=== PATIENT | male | born 1995 | race Caucasian/White ===

== ENCOUNTER 2025-04-12 06:58 | Emergency (ER) | payer SELFPAY ==
--- OUTSIDE RECORDS SUMMARY | 2025-04-08 10:40 | XMS_ITS | Encounter Summary ---
Author Organization [facility] C enter Address [address] [place] [address] Care Team Providers Care Account Development Associate Name Role Phone Nirmala Anderson MD Primary Care Provider Reason for Visit * Reason Comments ADHD Encounter Details Date Type Department Care Team ([facility] Contact Info) Description 04/08/2025 10:40 AM EDT Telemedicine Primary Care - Family Medicine [facility] [address] [place] [phone] Nirmala Anderson MD [address] [place] [phone] Traumatic brain injury with loss of consciousness, sequela (Primary Dx); Elevated ALT measurement; Moderate episode of recurrent major depressive disorder; Generalized anxiety disorder with panic attacks; Erectile dysfunction, unspecified erectile dysfunction type Social History Tobacco Use Types Packs/Day Years Used Date Smoking Tobacco: Never Smokeless Tobacco: Former Chew Alcohol Use Standard Drinks/Week Comments Not Currently 0 (1 standard drink = 0.6 oz pur e alcohol) Depression Answer Date Recorded PHQ-9 Total Score (Interpret ation of Total Score 1-4 = Minimal depression; 5-9 = Mild depression; 10-14 = Moderate depression; 15-19 = Moderately severe depression) 0 12/18/2024 Sex and Gender Information Value Date Recorded Sex Assigned at Not on file Legal Sex Male 10:33 AM EDT Gender Identity Male 12/17/2024 4:25 PM EDT Sexual Orientation Straight 12/17/2024 4: 25 PM EDT documented as of this encounter Progress Notes * Nirmala Anderson MD - 04/08/2025 10:40 AM EDT Family Medicine Video Visit Assessment and Plan Mario is a 30 y.o. male with a PMHx of TBI, depression, anxiety, HTN ICD-10-CM 1. Traumatic brain injury with loss of consciousness, sequela S06.9X9S 2. Elevated ALT measurement R74.01 COMPREHENSIVE METABOLIC PANEL 3. Moderate episode of recurrent major depressive disorder F33.1 atomoxetine 40 MG capsule 4. Generalized anxiety disorder with panic attacks F41.1 atomoxetine 40 MG capsule F41.0 5. Erectile dysfunction, unspecified erectile dysfunction type N52.9 TESTOSTERONE CBC,PLATELETS Assessment & Plan 1. Attention Deficit Disorder (ADD) in the setting of TBI - Reports that atomoxetine 40 mg is not lasting the whole day, with effects tapering off by early afternoon. - Advised to take atomoxetine 40 mg twice daily, once in the morning and once at lunchtime, to avoid the afternoon crash. If the medication affects sleep, he should reach out for a possible dose adjustment. 2. Depression: - Mentions that his antidepressant is not as effective as it used to be, particularly in the late afternoon and evening. - Plan is to first address the ADD, as uncontrolled ADD can exacerbate anxiety and depression. Adjustments to his antidepressant will be considered at the next visit if necessary. 3. Testosterone management: - Previous testosterone levels were dangerously high, posing risks such as blood clotting and liverdamage. - Advised to undergo another testosterone test. If the results indicate low levels, a similar treatment to his previous one will be considered. If the levels are within the normal range, no changes will be made. Follow-up: The patient will follow up on 05/03/2025. Follow up: as scheduled Total call time: 7 minutes Nirmala Anderson MD This telehealth visit is a real time audio/visual communication. During the scheduling process, this patient has verbally consented to the submission of Telehealth visits and the patient is aware of the risks, benefits, and possible coinsurance/copay costs. This visit is being conducted by real time video due to the current COVID19 pandemic and efforts toreduce in-clinic visits, where possible, to reduce the overall risk of the spread of the illness. Time to complete visit: Time to complete visit: 7 Minutes Chief Complaint or Reason for Visit Chief Complaint Patient presents with ADHD History of Present Illness History of Present Illness The patient presents via virtual visit for ADD, depression, and testosterone management. He has resumed work and is managing well but wishes to discuss potential adjustments to his ADD/ADHD medication. He reports that the effects of his current medication, atomoxetine 40 mg, are similar to those of his antidepressant. It is effective in the morning and early afternoon, but he experiences a decline in its efficacy by late afternoon. He typically takes the medication around 7:00 AM, and it remains effective until 1:00 or 2:00 PM. He also notes a decrease in the effectiveness of his antidepressants, which he believes is contributing to his symptoms. He has been struggling to schedule appointments due to increased travel for his new job. He is seeking a similar treatment to what he was receiving prior to our regular consultations. He recalls thathis testosterone level was 82 when tested in 11/2024 or 12/2024, and he was only receiving a quarter mL per week at that time. He is unsure how his level increased from 82 to 948. Occupation: Works for a [employer] Review Of Systems and Relevant History Past medical, surgical, family, and social history reviewed in [facility]. Review of Systems Objective Findings This appointment was conducted as a telephone visit, therefore no vitals were taken at the appointment. The vitals below are from the last three office visits. BP Readings from Last 3 Encounters: 02/26/25 151/79 01/14/25 (!) 180/94 12/18/24 156/86 Wt Readings from Last 3 Encounters: 02/26/25 93.4 kg (205 lb 12.8 oz) 01/14/25 97.5 kg (215 lb) 12/18/24 102.5 kg (226 lb) documented in this encounter Plan of Treatment Upcoming Encounters Date Type Department Care Team (Late st Contact Info) Description 05/03/2025 9:40 AM EDT Office Visit Primary Care - Family Medicine [facility] [address] [place] [phone] Nirmala Anderson MD [address] [place] [phone] Scheduled Orders Name Type Priority Associated Diagnoses Orde r Schedule TESTOSTERONE Lab Routine Erectile dysfunction, unspecified erectile dysfunction type Expected: 04/08/2025, Expires: 04/08/2026 COMPREHENSIVE METABOLIC PANEL Lab Routine Elevated ALT measurement Expected: 04/08/2025, Expires: 04/08/2026 CBC,PLATELETS Lab Routine Erectile dysfunction, unspecified erectile dysfunction type Expected: 04/08/2025, Expires: 04/08/2026 documented as of this encounter Visit Diagnoses Diagnosis Traumatic brain injury with loss of consciousness, sequela- Primary Elevated ALT measurement Nonspecific elevation of levels of transaminase or lactic acid dehydrogenase (LDH) Moderate episode of recurrent major depressive disorder Generalized anxiety disorder with panic attacks Erectile dysfunction, unspecified erectile dysfunction type documented in this encounter Additional Health Concerns Assessment Noted Time PHQ-9 Depression Total Score: 0 12/19/19 1:49 PM EDT documented as of this encounter Care Teams Account Development Associate Relationship Specialty Start Date End Date Nirmala Anderson MD PCP - General Family Medicine 12/18/24 documented as of this encounter
[2025-04-12] VITALS (34 sets, daily range): BP systolic 135–165; BP diastolic 75–95; PULSE 119–152; TEMP 36.8; O2SAT 97–100
--- NOTE | 2025-04-12 07:01 | ECG_ITS ---
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 Measurements Intervals [place] Rate: 136 P: -14168 WV: 99 QRS: 81 QRSD: 108 T: 7 QT: 360 QTc: 440 Interpretive Statements SINUS TACHYCARDIA Nonspecific ST changes ARTIFACT IN LEAD(S) precluding accurate interpretation 9140 abnormal rhythm ECG No previous ECG available for comparison Electronically Signed On 04-12-2025 7:49:52 EDT by RHIANNA PINA M.D.
[2025-04-12 07:09] LABS: Hematocrit 42.8 % (42.0-54.0); Hemoglobin 14.9 g/dL (14.0-18.0); Immature Granulocytes Abs Auto 0.01 10^3/uL (0.00-0.03); Immature Granulocytes Pct Auto 0.2 % (0.0-0.5); Lymphocytes Absolute Auto 1.7 10^3/uL (1.2-3.8); Mean Corpuscular HGB Conc 34.8 g/dL (29.9-35.2); Mean Corpuscular Hemoglobin 29.8 pg (25.9-34.0); Mean Corpuscular Volume 85.6 fL (80.0-94.0); Platelet Count 359 10^3/uL (150-450); Red Blood Count 5.00 10^6/uL (4.70-6.10); White Blood Count 6.3 10^3/uL (4.0-11.0)
[2025-04-12] MEDS: DIAZEPAM 10 MG/2 ML SYRINGE 5 MG IV ×2 (07:09→07:48)
[2025-04-12] MEDS: 0.9 % SODIUM CHLORIDE 1,000 ML 1000 ML IV (07:11)
[2025-04-12 07:24] LABS: Alanine Aminotransferase 75 U/L (16-63); Albumin Globulin Ratio 1.0; Albumin Level 3.8 g/dL (3.4-5.0); Alkaline Phosphatase 84 U/L (46-116); Anion Gap 26.1; Aspartate Amino Transferase 27 U/L (15-37); Blood Urea Nitrogen 16.0 mg/dL (7.0-18.0); Calcium 9.1 mg/dL (8.5-10.1); Carbon Dioxide 19.5 mmol/L (21.0-32.0); Chloride 100 mmol/L (98-107); Estimated GFR (African America >60 (>=60 mL/min/1.73m^2); Estimated GFR (Non-African Ame 57 (>=60 mL/min/1.73m^2); Globulin 3.7 g/dL; Glucose 136 mg/dL (74-106); Potassium 3.6 mmol/L (3.5-5.1); Sodium 142 mmol/L (136-145); Total Protein 7.5 g/dL (6.4-8.2)
--- NOTE | 2025-04-12 07:25 | ED.GENADUL1 ---
HPI HPI - General Adult General Chief complaint: Overdose Stated complaint: OVERDOSE Time Seen by Provider: 04/12/25 07:01 Source: patient Mode of arrival: ambulance History of Present Illness HPI narrative: 30-year-old male presents to the emergency department for a cocaine overdose. Some the history is obtained from the paramedics and some of it from his mother. Apparently about 3 to 4 weeks ago he lost his job and then his girlfriend broke up with him about 2 weeks ago and asked him to leave their home. He did move in with his mother about 2 weeks ago and that is where today's events happened. He reportedly had snorted and orally ingested an 8 ball of cocaine. He did this because he was upset about losing his girlfriend and not being able to see his child. His mother reports that he has a history of depression but has never harmed himself previously. He admits to drinking alcohol last night and denies any other drug use. Related Data Home Medications ?Medication ?Instructions ?Recorded ?Confirmed atomoxetine 40 mg capsule 40 mg PO DAILY 04/12/25 04/12/25 bupropion HCl 300 mg 24 hr tablet, 300 mg PO DAILY 04/12/25 04/12/25 extended release fluoxetine 20 mg capsule 60 mg PO DAILY 04/12/25 04/12/25 hydrochlorothiazide 25 mg tablet 25 mg PO DAILY 04/12/25 04/12/25 hydroxyzine HCl 10 mg tablet 10 mg PO Q8H PRN anxiety 04/12/25 04/12/25 olmesartan 20 mg tablet 20 mg PO DAILY 04/12/25 04/12/25 tadalafil 10 mg tablet 10 mg PO DAILY PRN sexual activity 04/12/25 04/12/25 trazodone 50 mg tablet 50 mg PO .QHS PRN insomnia 04/12/25 04/12/25 valacyclovir 500 mg tablet 500 mg PO DAILY 04/12/25 04/12/25 Allergies Allergy/AdvReac Type Severity Reaction Status Date / Time meperidine (From Demerol) Allergy Severe Unknown Verified 04/12/25 07:04 Review of Systems ROS Narrative A ten point review of systems is negative except as noted above. PFSH PFS Medical History (Updated 04/12/25 @ 09:33 by Gabriela Malhotra) Anxiety ?F41.9 - Anxiety disorder, unspecified (ICD-10) ADHD ?F90.9 - Attention-deficit hyperactivity disorder, unspecified type (ICD-10) HTN (hypertension) ?I10 - Essential (primary) hypertension (ICD-10) Exam Narrative Exam Narrative: Nurses note and vital signs reviewed and patient is not hypoxic. General:The patient appears well and in no apparent distress.Patient is resting comfortably on cart. Skin:Warm, dry, no pallor noted.There is no rash noted. Head:Normocephalic, atraumatic Eye: Conjunctiva are injected, no drainage Ears, Nose, Mouth, and Throat: oral mucosa is moist. Nares patent. Cardiovascular:Regular Rate and Rhythm, tachycardic Respiratory:Patient is in no distress, no accessory muscle use, lungs are clear to auscultation, no wheezing, rales or rhonchi Back:non-tender GI: Soft and nontender Musculoskeletal: The patient has no evidence of calf tenderness, no pitting edema, symmetrical pulses noted bilaterally Neurological: Awake and alert Psychiatric:Cooperative, tearful Constitutional Vital Signs, click to edit/add: Last Vital Signs Temp 98.2 F 04/12/25 07:02 Pulse 135 H 04/12/25 09:20 Resp 22 H 04/12/25 09:20 BP 151/91 H 04/12/25 09:15 Pulse Ox 100 04/12/25 09:20 O2 Del Method Room Air 04/12/25 07:02 O2 Flow Rate 2 04/12/25 07:14 Course Vital Signs Vital signs: Vital Signs Temperature 98.2 F 04/12/25 07:02 Pulse Rate 139 H 04/12/25 07:02 Respiratory Rate 32 H 04/12/25 07:02 Blood Pressure 165/87 H 04/12/25 07:02 Pulse Oximetry 99 04/12/25 07:02 Oxygen Delivery Method Room Air 04/12/25 07:02 Temperature 98.2 F 04/12/25 07:02 Pulse Rate 135 H 04/12/25 09:20 Respiratory Rate 22 H 04/12/25 09:20 Blood Pressure 151/91 H 04/12/25 09:15 Pulse Oximetry 100 04/12/25 09:20 Oxygen Delivery Method Room Air 04/12/25 07:02 Oxygen Delivery Flow Rate 2 04/12/25 07:14 Medical Decision Making MDM Narrative Medical decision making narrative: The patient presented with a cocaine overdose and has had persistent tachycardia. He has received 5 mg of IV Valium twice. He has been cooperative. Both troponins are in the normal range but he went from 8 up to 15. He will need to be admitted and observed. I have spoken to Dr. Head and we have agreed that patient will be transferred to [facility]. I have spoken to Dr. Romano who accepts the patient there. The patient is agreeable and stable for transfer. Differential Diagnosis Differential Diagnosis: Overdose, suicidal ideation, self-harm, depression Lab Data Lab results reviewed: Yes I reviewed the patient's lab results Labs: Lab Results 04/12/25 04/12/25 Range/Units 07:02 08:44 WBC 6.3 (4.0-11.0) 10^3/uL RBC 5.00 (4.70-6.10) 10^6/uL Hgb 14.9 (14.0-18.0) g/dL Hct 42.8 (42.0-54.0) % MCV 85.6 (80.0-94.0) fL MCH 29.8 (25.9-34.0) pg MCHC 34.8 (29.9-35.2) g/dL RDW 12.8 (11.0-15.0) % Plt Count 359 (150-450) 10^3/uL MPV 9.5 (9.5-13.5) fL Neut % (Auto) 64.1 (43.0-75.0) % Lymph % (Auto) 26.3 (20.5-60.0) % Roberts % (Auto) 7.2 (1.7-12.0) % Eos % (Auto) 0.6 L (0.9-7.0) % Baso % (Auto) 1.6 (0.2-2.0) % Neut # (Auto) 4.0 (1.4-6.5) 10^3/uL Lymph # (Auto) 1.7 (1.2-3.8) 10^3/uL Roberts # (Auto) 0.5 (0.3-0.8) 10^3/uL Eos # (Auto) 0.0 (0.0-0.7) 10^3/uL Baso # (Auto) 0.1 (0.0-0.1) 10^3/uL Abs Immat Gran (auto) 0.01 (0.00-0.03) 10^3/uL Imm/Tot Granulo (auto) 0.2 (0.0-0.5) % Sodium 142 (136-145) mmol/L Potassium 3.6 (3.5-5.1) mmol/L Chloride 100 (98-107) mmol/L Carbon Dioxide 19.5 L (21.0-32.0) mmol/L Anion Gap 26.1 BUN 16.0 (7.0-18.0) mg/dL Creatinine 1.44 H (0.70-1.30) mg/dL Est GFR ( Amer) >60 (>=60 mL/min/1.73m^2) Est GFR (Non-Af Amer) 57 L (>=60 mL/min/1.73m^2) BUN/Creatinine Ratio 11.1 Glucose 136 H (74-106) mg/dL Calcium 9.1 (8.5-10.1) mg/dL Total Bilirubin 0.3 (0.2-1.0) mg/dL AST 27 (15-37) U/L ALT 75 H (16-63) U/L Alkaline Phosphatase 84 (46-116) U/L Troponin I High Sens 8.2 15.4 (4.0-76.1) pg/mL Total Protein 7.5 (6.4-8.2) g/dL Albumin 3.8 (3.4-5.0) g/dL Globulin 3.7 g/dL Albumin/Globulin Ratio 1.0 Salicylates <2.8 (<=19.9) mg/dL Acetaminophen <2.0 L (10.0-30.0) ug/mL Ethanol Quant 15 mg/dL Imaging Data Chest x-ray: Radiologist's impression: ITS Impressions Chest X-Ray 04/12/25 07:38 IMPRESSION: BORDERLINE CARDIOMEGALY. NO ACUTE FINDINGS Impression dictated by: Nicolasa Mckenna M.D. 04/12/2025 7:57 AM Dictation Location: [place] [address] Electronically authenticated by: [id number] Y Date: 04/12/2025 07:57 ECG Data Attestation: I personally reviewed and interpreted this ECG as follows: (EKG on my interpretation shows sinus tachycardia with heart rate of 136. Artifact present.) Critical Care Time Critical Care Time Critical Care Time: Yes Total Critical Care Time: 35 Attestation: Due to the high probability of sudden and clinically significant deterioration in the patient's condition he/she required the highest level of my preparedness to intervene urgently I provided critical care time including documentation time, medication orders and management, reevaluation, vital sign assessment, ordering and reviewing of lab tests, ordering and reviewing of x-ray studies, and admission orders. Aggregate critical care time is 35 minutes including only time during which I was engaged in work directly related to his/her care and did not include time spent treating other patients simultaneously. Discharge Plan Discharge Chief Complaint: Overdose Clinical Impression: Intentional overdose of cocaine, Suicidal ideation Patient Disposition: [facility] Time of Disposition Decision: 07:48 Discharge Location: [facility] Condition: Serious Mode of Transportation: EMS
--- NOTE | 2025-04-12 07:38 | XR_ITS ---
[facility] [place] [id number] Patient Name: JOHN FREEMAN MRN: [id number] date: 1995 Sex: M Assigned Patient Location: ER Current Patient Location: ED.MAIN Accession/Order Number: [id number] Exam Date: 04/12/2025 07:42 Report Date: 04/12/2025 07:57 At the request of: PORFIRIO VALLE MD Procedure: XR chest 1V PORTABLE AP ERECT CHEST 0727 hours CLINICAL HISTORY: Tachycardia, cocaine overdose COMPARISON: 06/10/2010 There is incomplete inspiration. The heart appears borderline prominent. There is no vascular congestion. There may be minimal basilar atelectasis however no focal consolidation is noted. There is no effusion or pneumothorax. The osseous structures are intact. XR/XR chest 1V IMPRESSION: BORDERLINE CARDIOMEGALY. NO ACUTE FINDINGS Impression dictated by: Nicolasa Mckenna M.D. 04/12/2025 7:57 AM Dictation Location: [place] [address] Electronically authenticated by: [id number] Y Date: 04/12/2025 07:57
[2025-04-12 07:46] LABS: Acetaminophen <2.0 ug/mL (10.0-30.0); Salicylate <2.8 mg/dL (<=19.9)
--- OUTSIDE RECORDS SUMMARY | 2025-04-12 07:46 | XMS_ITS | Clinical Summary ---
Author Organization [facility] Address [address] [place] [phone] Care Team Providers Care Drain Tile Machine Operator Name Role Phone Nirmala Anderson MD Primary Care Provider [phone] Allergies Active Allergy Reactions Criticality Noted Date Comments Meperidine Hives 11/21/2024 Medications testosterone cypionate 200 MG/ML Solution injection Inject 0.25 mL intramuscularly every 7 days. 12/12/19 25 Active olmesartan 20 MG tabletIndicatio ns:Primary hypertension Take 1 tablet by mouth daily. 30 tablet 3 02/27/20 25 Active valACYclovir 500 MG tablet Take 1 tablet by mouth daily. 90 tablet 3 02/27/20 25 Active traZODone 50 MG tabletIndicatio ns:PTSD (post-traumatic stress disorder) Take 1 tablet by mouth at bedtime as needed. 90 tablet 3 02/27/20 25 Active tadalafil 10 MG tabletIndicatio ns:Erectile dysfunction, unspecified erectile dysfunction type Take 1 tablet by mouth daily as needed. 30 tablet 1 02/27/20 25 Active hydroCHLOROthia zide 25 MG tabletIndicatio ns:Primary hypertension Take 1 tablet by mouth daily. 90 tablet 3 02/27/20 25 Active FLUoxetine 20 MG capsuleIndicati ons:Generalized anxiety disorder with panic attacks,Moderat e episode of recurrent major depressive disorder,PTSD (post-traumatic stress disorder) Take 3 capsules by mouth daily. 270 capsule 3 02/27/20 25 Active buPROPion 300 MG tablet XLIndications:G eneralized anxiety disorder with panic attacks,Moderat e episode of recurrent major depressive disorder Take 1 tablet by mouth daily. 90 tablet 3 02/27/20 25 Active hydrOXYzine hcl 10 MG tabletIndicatio ns:Generalized anxiety disorder with panic attacks,Moderat e episode of recurrent major depressive disorder,PTSD (post-traumatic stress disorder) Take 1 tablet by mouth 3 times daily as needed for Anxiety. 90 tablet 04/05/20 25 Active atomoxetine 40 MG capsuleIndicati ons:Moderate episode of recurrent major depressive disorder,Genera lized anxiety disorder with panic attacks Take 1 capsule by mouth 2 times daily. 180 capsule 04/08/20 25 Active hydrOXYzine hcl 10 MG tabletIndicatio ns:Generalized anxiety disorder with panic attacks,Moderat e episode of recurrent major depressive disorder,PTSD (post-traumatic stress disorder) Take 1 tablet by mouth 3 times daily as needed for Anxiety. 90 tablet 02/27/20 25 025 Discontin ued(Reord er) atomoxetine 40 MG capsuleIndicati ons:Generalized anxiety disorder with panic attacks,Moderat e episode of recurrent major depressive disorder Take 1 capsule by mouth daily. 90 capsule 3 02/27/20 25 025 Discontin ued(Reord er) Active Problems Problem Noted Date Diagnosed Date Generalized anxiety disorder with panic attacks 01/14/2025 PTSD (post-traumatic stress disorder) 12/18/2024 TBI (traumatic brain injury) 12/18/2024 Primary hypertension 11/14/2023 Moderate episode of recurrent major depressive d isorder 11/14/2023 Elevated LDL cholesterol level 11/14/2023 Elevated ALT measurement 11/14/2023 Encounters Date Type Department Care Team Description 04/08/2025 10:40 AM EDT Telemedicine [address] [phone] Nirmala Anderson MD Traumatic brain injury with loss of consciousness, sequela (Primary Dx); Elevated ALT measurement; Moderate episode of recurrent major depressive disorder; Generalized anxiety disorder with panic attacks; Erectile dysfunction, unspecified erectile dysfunction type 04/04/2025 Telephone Primary Care - [facility] Medicine [address] [phone] Nirmala Anderson MD Medication Management 04/04/2025 Refill Primary [facility] - [address] [phone] Nirmala Anderson MD Generalized anxiety disorder with panic attacks; Moderate episode of recurrent major depressive disorder; PTSD (post-traumatic stress disorder) 04/04/2025 Refill Primary [address] [phone] Maylin Meza MD Generalized anxiety disorder with panic attacks; Moderate episode of recurrent major depressive disorder; PTSD (post-traumatic stress disorder) 03/15/[address] [phone] Nirmala Anderson MD Generalized anxiety disorder with panic attacks; Moderate episode of recurrent major depressive disorder; PTSD (post-traumatic stress disorder) 03/14/2025 Telephone [place] [phone] Gladis Vance Paperwork 03/11/2025 Refill [place] [phone] Nirmala Anderson MD Generalized anxiety disorder with panic attacks; Moderate episode of recurrent major depressive disorder; PTSD (post-traumatic stress disorder) 03/10/[address] [address] Nirmala Anderson MD Generalized anxiety disorder with panic attacks; Moderate episode of recurrent major depressive disorder; PTSD (post-traumatic stress disorder) 02/26/2025 9:40 AM EDT Office Visit [address] [phone] Nirmala Anderson MD Generalized anxiety disorder with panic attacks (Primary Dx); Moderate episode of recurrent major depressive disorder; PTSD (post-traumatic stress disorder); Primary hypertension; Other chest pain; Erectile dysfunction, unspecified erectile dysfunction type 02/19/[address] [phone] Nirmala Anderson MD Appointment 01/14/2025 3:20 PM EDT Office Visit [facility] - [facility] [place] [phone] Maylin Meza MD Generalized anxiety disorder with panic attacks (Primary Dx); Moderate episode of recurrent major depressive disorder; PTSD (post-traumatic stress disorder); Primary hypertension; Erectile dysfunction, unspecified erectile dysfunction type from Last 3 Months Family History Medical History Relation Name Comments Coronary Artery Disease Mother Diabetes Mother Hypertension Mother Lung Cancer Paternal Grandfather Colon Cancer Neg Hx Prostate Cancer Neg Hx Relation Name Status Comments Mother Paternal Grandfather Social History Tobacco Use Types Packs/Day Years Used Date Smoking Tobacco: Never Smokeless Tobacco: Former Chew Tobacco Cessation:Counseling Given: Not Answered Alcohol Use Standard Drinks/Week Comments Not Currently [...] Orientation Straight 12/17/2024 4: 25 PM EDT Last Filed Vital Signs Vital Sign Reading Time Taken Comments Blood Pressure 151/79 02/26/2025 9:46 AM EDT Pulse 82 02/26/2025 9:46 AM EDT Temperature 36.3 C (97.3 F) 02/26/2025 9:46 AM EDT Respiratory Rate 16 02/26/2025 9:46 AM EDT Oxygen Saturation - - Inhaled Oxygen Concentration - - Weight 93.4 kg (205 lb 12.8 oz) 02/26/2025 9:46 AM EDT Height 182.9 cm (6') 02/26/2025 9:46 AM EDT Body Mass Index 27.91 02/26/2025 9:46 AM EDT Plan of Treatment Upcoming Encounters Date Type Department Care Team (Late st Contact Info) Description 05/03/2025 9:40 AM EDT Office Visit Primary Care - Family Medicine [facility] Zeke Tolbert [address] [place] [phone] Nirmala Anderson MD [address] [place] [phone] Health Maintenance Due Date Last Done Comments TETANUS 1995 PREVENTATIVE HEALTH VISIT 1997 HEP B VACCINE (1 of 3 - 19+ 3-dose series) 2013 TDAP (ADULT) 2013 HPV VACCINE (1 - 3-dose SCDM series) 2021 COVID-19 VACCINE (1 - 2023-2 5 season) 2025 INFLUENZA VACCINE (#1) 2025 POTASSIUM 12/18/2025 12/18/2024 HEPATITIS C VIRUS SCREENING Completed 12/18/2024 HIV SCREENING DISCUSSION Completed 12/18/2024 PNEUMOCOCCAL VACCINE SERIES Aged Out No longer eligible based on patient's age to complete this topic Procedures Procedure Name Priority Date/Time Associated Diagnosis Comments HIV 1 AND 2 ANTIBODIES/P24 ANTIGEN Routine 12/18/2024 1:55 PM EDT Encounter for screening for HIV HEPATITIS C ANTIBODY Routine 12/18/2024 1:55 PM EDT Need for hepatitis C screening test COMPREHENSIVE METABOLIC PANEL Routine 12/18/2024 1:55 PM EDT Screening for diabetes mellitus from Last 3 Months or Most Recently Relevant to Health Maintenance Results * HIV 1 AND 2 ANTIBODIES/P24 ANTIGEN (12/18/2024 1:55 PM EDT) HIV-1/HIV-2 Ab With p24 Antigen Non Reactive Non Reactive 12/18/2024 5:28 PM EDT [facility] Blood Venipuncture / Unknown 12/18/2024 1:55 PM EDT 12/18/2024 1:56 PM EDT us Nirmala Anderson MD IMMUNOLOGY ORDERABLES Final Result [facility] [address] [facility] [place] [address] * HEPATITIS C ANTIBODY (12/18/2024 1:55 PM EDT) Pathologist [facility] Hepatitis C Antibody Negative Negative 12/18/2024 5:31 PM EDT [facility] Blood Venipuncture / Unknown 12/18/2024 1:55 PM EDT 12/18/2024 1:56 PM EDT us Nirmala Anderson MD IMMUNOLOGY ORDERABLES Final Result [facility] [address] [address] * (ABNORMAL) COMPREHENSIVE METABOLIC PANEL (12/18/2024 1:55 PM EDT) [facility] Sodium 139 135 - 145 mmol/L 12/18/2024 4:18 PM EDT [facility] Potassium 4.2 3.5 - 5.0 mmol/L 12/18/2024 4:18 PM EDT [facility] Chloride 97(L) 98 - 108 mmol/L 12/18/2024 4:18 PM EDT [facility] BUN 13 7 - 25 mg/dL 12/18/2024 4:18 PM EDT [facility] Creatinine 1.23 0.70 - 1.30 mg/dL 12/18/2024 4:18 PM EDT [facility] Glucose 109 Nonfasting : 70-179 mg/dL; Fastin-99 mg/dL 12/18/2024 4:18 PM EDT [facility] Bilirubin Total 0.4 <1.5 mg/dL 4:18 PM EDT [facility] Albumin 4.9 3.5 - 5.0 g/dL 12/18/2024 4:18 PM EDT [facility] Total Protein 7.9 6.4 - 8.3 g/dL 12/18/2024 4:18 PM EDT [facility] AST 27 10 - 39 U/L 12/18/2024 4:18 PM EDT [facility] ALP 75 32 - 126 U/L 12/18/2024 4:18 PM EDT [facility] Calcium 10.3 8.6 - 10.5 mg/dL 12/18/2024 4:18 PM EDT [facility] CO2 32(H) 21 - 31 mmol/L 12/18/2024 4:18 PM EDT [facility] ALT 34 10 - 52 U/L 12/18/2024 4:18 PM EDT [facility] Bun/Crea Ratio 11 12/18/2024 4:18 PM EDT [facility] Osmolality (Calculated) 292 278 - 305 mOsm/kg 12/18/2024 4:18 PM EDT [facility] Anion Gap 14 7 - 17 mmol/L 12/18/2024 4:18 PM EDT [facility] eGFR, CKD-EPI, Male 81 >=60 mL/min/1.7 3m2 12/18/2024 4:18 PM EDT [facility] Comment:Reported eGFR is bas ed on the CKD-EPI 2020 equation using creatinine, age, and sex. Blood Venipuncture / Unknown 12/18/2024 1:55 PM EDT 12/18/2024 1:56 PM EDT us Nirmala Anderson MD CHEMISTRY ORDERABLES Final R esult [facility] [address] [place] [address] from Last 3 Months or Most Recently Relevant to Health Maintenance Insurance [facility] [employer] Care Teams Drain Tile Machine Operator Relationship Specialty Start Date End Date Nirmala Anderson MD PCP - General Family Medicine 12/18/24
--- OUTSIDE RECORDS SUMMARY | 2025-04-12 07:46 | XMS_ITS | Encounter Summary ---
Author Organization [facility] Address [address] [place] [address] Care Team Providers Care Residential Roofer Helper Name Role Phone Nirmala Anderson MD Primary Care Provider [phone] Reason for Visit * Reason Onset Date Comments Medication Management 04/04/2025 Encounter Details Date Type Department Care Team ([facility] st Contact Info) Description 04/04/2025 Telephone Primary Care - Family Medicine [facility] Tomasz [address] [place] [phone] Nirmala Anderson MD [address] [place] [phone] Medication Management Social History Tobacco Use Types Packs/Day Years [...] PM EDT documented as of this encounter Miscellaneous Notes * Telephone Encounter - Cecily Avalos MA - 04/05/2025 12:03 PM EDT Called and spoke with pt. Advised pt would have to wait until appt. Pt wanted to see if there was asooner appt available. Scheduled telehealth on Tuesday with PCP. * Telephone Encounter - Christianne Clements - 04/04/2025 4:56 PM EDT Pt calling asking if his ADHD medication can be upped at all. He has an appt on may 03, if needed they can discuss it then. Please advise, thank you. documented in this encounter Plan of Treatment Upcoming Encounters Date Type Department Care Team (Late st Contact Info) Description 05/03/2025 9:40 AM EDT Office Visit Primary Care - Family Medicine [facility] Care Zeke Tolbert [address] [place] [address] Nirmala Anderson MD [address] [place] [address] documented as of this encounter Visit Diagnoses Not on filedocumented in this encounter Additional Health Concerns Assessment Noted Time PHQ-9 Depression Total Score: 0 12/19/19 25 1:49 PM EDT documented as of this encounter Care Teams Residential Roofer Helper Relationship Specialty Start Date End Date Nirmala Anderson MD PCP - General Family Medicine 12/18/24 documented as of this encounter
--- OUTSIDE RECORDS SUMMARY | 2025-04-12 07:46 | XMS_ITS | Encounter Summary ---
Author Organization [facility] Address [address] [place] [address] Care Team Providers Care Clinical Dietitian Name Role Phone Nirmala Anderson MD Primary Care Provider [phone] Reason for Visit * Reason Onset Date Comments Medication Refill 04/04/2025 Encounter Details Date Type Department Care Team ([facility] st Contact Info) Description 04/04/2025 Refill Primary Care - Family Medicine [facility] [address] [place] [phone] Nirmala Anderson MD [address] [place] [phone] Generalized anxiety disorder with panic attacks; Moderate episode of recurrent major depressive disorder; PTSD (post-traumatic stress disorder) Social History Tobacco Use Types Packs/Day Years [...] encounter Miscellaneous Notes * Telephone Encounter - Christiannemerlin Clements - 04/04/2025 4:53 PM EDT Prescription refill Currently out of medication(s)? No Will you be out of medication in the next 24-48 hours? Yes, 3 pills left (takes three times a day) Which medications are needed? pend Is this a controlled medication? No Which pharmacy? [facility] 30 or 90 day supply? 90 Last visit with PCP: 02/26/25 Next visit with PCP: 05/03/25 Is an appointment needed for this refill? No Notes: Route encounter to MA/Orders pool: [facility] (clinical support ) pool - [id number] documented in this encounter Plan of Treatment Upcoming Encounters Date Type Department Care Team (Late st Contact Info) Description 05/03/2025 9:40 AM EDT Office Visit Primary Care - Family Medicine [facility] Care Zeke Tolbert [address] [place] [address] Nirmala Anderson MD [address] [place] [address] documented as of this encounter Visit Diagnoses Diagnosis Generalized anxiety disorder with panic attacks Moderate episode of recurrent major depressive disorder PTSD (post-traumatic stress disorder) Posttraumatic stress disorder documented in this encounter Additional Health Concerns Assessment Noted Time PHQ-9 Depression Total Score: 0 12/19/19 25 1:49 PM EDT documented as of this encounter Care Teams Clinical Dietitian Relationship Specialty Start Date End Date Nirmala Anderson MD PCP - General Family Medicine 12/18/24 documented as of this encounter
[2025-04-12] MEDS: 0.9 % SODIUM CHLORIDE 1,000 ML 200 ML IV (08:07)
--- NOTE | 2025-04-12 08:11 | ECG_ITS ---
[facility] Test Date: 2025-04-12 Pat Name: JOHN FREEMAN Department: Room: - Gender: Male Ticket Maker: : 1995 Requested By: [id number] Order Number: [id number] Reading MD: RHIANNA PINA M.D. Measurements Intervals Baker Rate: 126 P: 150 LA: 190 QRS: 51 QRSD: 110 T: 24 QT: 374 QTc: 449 Interpretive Statements SINUS TACHYCARDIA Nonspecific ST-T wave changes 9150 abnormal ECG Compared to ECG 04/12/2025 07:07:26 No significant changes Electronically Signed On 04-12-2025 10:01:36 EDT by RHIANNA PINA M.D.
--- NOTE | 2025-04-12 08:12 | PC.NURSE ---
pt c/o of chest tightness, ER DR notified and EKG complete and given to ER DR for review
[2025-04-12] MEDS: ASPIRIN 81 MG TAB.CHEW 324 MG PO (08:15)
--- NOTE | 2025-04-12 09:29 | ECG_ITS ---
[facility] Test Date: 2025-04-12 Pat Name: JOHN FREEMAN Department: Room: - Gender: Male Mandolin Repairer: : 1995 Requested By: [id number] Order Number: [id number] Reading MD: CARLOS SCRUGGS Measurements Intervals [place] Rate: 132 P: 150 NC: 180 QRS: 38 QRSD: 110 T: -30 QT: 320 QTc: 398 Interpretive Statements 1220 Sinus tachycardia 3623 Possible inferior myocardial infarction, probably old 9150 abnormal ECG Compared to ECG 04/12/2025 08:10:03 Myocardial infarct finding now present ST (T wave) deviation no longer present Electronically Signed On 04-12-2025 10:08:54 EDT by CARLOS SCRUGGS
[2025-04-12 09:52] LABS: Glucose Urine UA NEGATIVE (NEGATIVE)
--- NOTE | 2025-04-12 09:53 | CT_ITS ---
The [address] [address] Patient Name: JOHN FREEMAN MRN: [id number] date: 1995 Sex: M Assigned Patient Location: ER Current Patient Location: ER Accession/Order Number: [id number] Exam Date: 04/12/2025 10:03 Report Date: 04/12/2025 10:29 At the request of: PORFIRIO VALLE MD Procedure: CT head/brain wo con CT BRAIN WITHOUT CONTRAST: CLINICAL HISTORY: Overdose on cocaine today. COMPARISON: 03/25/2008 TECHNIQUE: Contiguous axial unenhanced images were obtained through the brain. This CT exam was performed using one or more following dose reduction techniques: Automated exposure control, adjustment of the mA and/or kV according to patient size, or use of iterative reconstruction technique. FINDINGS: The ventricles are normal in size and position. Napier-white differentiation is maintained. There are no areas of abnormal attenuation. There is no hemorrhage, mass effect or extra-axial collections. There is minimal right maxillary mucosal thickening. The remaining imaged paranasal sinuses and mastoid air cells are clear. Soft tissue density is seen within the nasal passages anteriorly, greater on the right that may be secretions. There is nasal septal deviation to the left. CT/CT head/brain wo con IMPRESSION: NO ACUTE INTRACRANIAL ABNORMALITY. Impression dictated by: Nicolasa Mckenna M.D. 04/12/2025 10:29 AM Dictation Location: [place] [address] Electronically authenticated by: [id number] Date: 04/12/2025 10:29
[2025-04-12 10:00] LABS: Cast Seen? SEEN #/LPF (NONE SEEN); Crystals Seen? None Seen #/HPF (None Seen)
[2025-04-12 10:02] LABS: Cannabinoid Screen Urine NEGATIVE (NEGATIVE); Methamphetamines Screen Urine NEGATIVE (NEGATIVE); Tricyclic Antidepressant Urine NEGATIVE (NEGATIVE)
== END 2025-04-12 11:39 | disposition short-term general hospital (02) ==
PROVIDERS: Emergency Medicine; Emergency Provider Emergency Medicine
DX: T40.5X2A Poisoning by cocaine, intentional self-harm, initial encounter (principal); R00.0 Tachycardia, unspecified; R45.851 Suicidal ideations
CPT/HCPCS: 36415; 70450; 71045; 80053; 80179; 80307; 80320; 80329; 81001; 84484; 85025; 93005; 96374; 96376; 99285; J3360